=== PATIENT | female | born 1955 | race Caucasian/White ===

== ENCOUNTER 2016-08-03 10:24 | Emergency (ER) | payer BC ==
[2016-08-03 10:57] VITALS: RESP 18; TEMP 98; O2SAT 97
[2016-08-03 11:03] LABS: COLOR YELLOW; LEUKOCYTE ESTERASE,URINE 2+ (NEGATIVE); NITRITE,URINE NEGATIVE (NEGATIVE); PH,URINE 6.5 (5.0-7.5)
[2016-08-03 11:17] LABS: AMORPHOUS 1+ /hpf (NONE-1+); BACTERIA TRACE /hpf (NONE SEEN); WBC,URINE 50-182 /hpf (0-3)
--- NOTE | 2016-08-03 12:00 | UCPHY ---
H & P Time Seen by Provider: 08/03/16 11:24 Patient Type: New HPI/ROS: CHIEF COMPLAINT: [Dysuria] HISTORY OF PRESENT ILLNESS: [symptoms started yesterday. She is here visiting [place] the next [place]. She was worried regarding his status. Vis-a-vis, she was recently diagnosed with some kind of macroglobulinemia. She has completed a bone marrow. She has had no fevers chills or rigors back pain or flank pain. No hematuria ] Fever [none] Chills [none] Rigors [none] flank pain [none] abdominal pain [none] Exposure: REVIEW OF SYSTEMS: Gastrointestinal: No vomiting, no abdominal pain. 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 Smoking Status: Never smoked Physical Exam: Gen: Afebrile. WD. WN. Nontoxic. Well-spoken woman Abdomen: BS positive. Nondistended. Soft and nontender. No CVA tenderness Constitutional: Initial Vital Signs Temperature (C) 36.6 C 08/03/16 10:53 Heart Rate 79 08/03/16 10:53 Respiratory Rate 18 08/03/16 10:53 Blood Pressure 118/62 08/03/16 10:53 O2 Sat (%) 97 08/03/16 10:53 O2 Delivery Mode Room Air Allergies/Adverse Reactions: No Known Allergies Allergy (Unverified 08/03/16 10:52) Home Medications: Medication Instructions Recorded Phenazopyridine HCl [Pyridium] 200 mg PO TID #6 tab 08/03/16 levOFLOXACIN [Levaquin] 500 mg PO DAILY #3 tablet 08/03/16 Medical Decision Making ED Course/Re-evaluation: We had a conversation regarding her immune status. She feels that she would be best served by going with a fluoroquinolone due to its high propensity for cure. As to the green discoloration of the truly unusual for this to be a marker of Pseudomonas however we do also covered that, however, no true antibiotic as an outpatient would be well-versed in taking care of pseudomonas. Thereby would opt for Levaquin due to some propensity for resistance of plate Cipro. We discussed the black box warning for fluoroquinolones with respect to tendinopathy.. Urinalysis suggested UTI with positive leukocytes but only 1+ squames Differential Diagnosis: Differential diagnosis includes, but is not limited to: dehydration, Cystitis, pyelonephritis, vaginitis. - Data Points Microbiology Results: MICROBIOLOGY 08/03/16 11:04 Urine,Clean Catch Urine Culture - Final Five Or More Manter Types Departure - Departure Disposition: Home, Routine, Self-Care Clinical Impression: Cystitis Condition: Good Instructions: Urinary Tract Infection in Women (ED) Additional Instructions: Return or go to 1 of the local ERs review started having nausea vomiting. On the Levaquin, no sun exposure peridium is going to sting urine orange. It is for the symptomatic improvement of the urination Referrals: NONE *PRIMARY CARE P,. [Primary Care Provider] - As per Instructions Prescriptions: levOFLOXACIN [Levaquin] 500 mg PO DAILY #3 tablet Phenazopyridine HCl [Pyridium] 200 mg PO TID #6 tab - PQRS PQRS Measurement: Not applicable
[2016-08-03 12:18] VITALS: BP 124/62; PULSE 77
== END 2016-08-03 12:17 | disposition home or self-care (01) ==
LOC: CED 10:24
DX: N30.90 Cystitis, unspecified without hematuria (principal); C88.0 Waldenstrom macroglobulinemia
CPT/HCPCS: 81003-PO; 81015-PO; 99202-PO; G0463-PO